=== PATIENT | male | born 1975 | race Caucasian/White ===

== ENCOUNTER → 2021-01-23 | Outpatient (CLI) | payer OTHER ==
[~2021-01-23] MED LIST: ASPIRIN325 MG PO; CLEOCIN HCL300 MG PO; COL-RITE250 MG PO; DOK250 MG PO; IBUPROFEN800 MG PO; NAPROSYN500 MG PO; NORCO 7.5-3251 EACH PO; PERCOCET 7.5-31 EACH PO; ZOFRAN4 MG PO
== END ==
LOC: RT 13:21
DX: R05 Cough (principal); R06.00 Dyspnea, unspecified; R07.9 Chest pain, unspecified; R91.8 Other nonspecific abnormal finding of lung field
CPT/HCPCS: 36415; 71046; 93005

== ENCOUNTER → 2021-10-24 | Outpatient (CLI) | payer OTHER ==
[~2021-10-24] MED LIST changes: +HYDROCHLOROTHIA25 MG PO; +METFORMIN HCL500 MG PO; +NORVASC10 MG PO
== END ==
LOC: OPSV2 09:00
DX: Z01.810 Encounter for preprocedural cardiovascular examination (principal)
CPT/HCPCS: 93005

== ENCOUNTER → 2021-11-07 | Outpatient (CLI) | payer OTHER | LOC: HEART 5 11-04 08:30 | DX: Z01.810 Encounter for preprocedural cardiovascular examination (principal); R07.9 Chest pain, unspecified; I08.1 Rheumatic disorders of both mitral and tricuspid valves | CPT/HCPCS: 93306 ==

== ENCOUNTER → 2021-11-21 | Outpatient (CLI) | payer OTHER ==
[2021-11-21 09:14] LABS: BUN/CREATININE RATIO 19 (0-10)
== END ==
LOC: OPSV2 07:33
PROVIDERS: Anesthesiology
DX: Z01.812 Encounter for preprocedural laboratory examination (principal)
CPT/HCPCS: 80048

== ENCOUNTER → 2021-11-22 | Day surgery (SDC) | payer OTHER | END | disposition home or self-care (01) | LOC: OR 05:32 → EDSTATUS 08:30 | DX: C44.41 Basal cell carcinoma of skin of scalp and neck (principal); E11.9 Type 2 diabetes mellitus without complications; I10 Essential (primary) hypertension | CPT/HCPCS: 82962; J0690; J1100; J1170; J2001; J2405; J2704; J3010; J7030; J7120 ==

== ENCOUNTER 2021-11-24 09:10 | Emergency (ER) | payer OTHER | END 2021-11-24 11:20 | disposition home or self-care (01) | LOC: ER1 09:10 | DX: T81.31XA Disruption of external operation (surgical) wound, not elsewhere classified, initial encounter (principal); E11.9 Type 2 diabetes mellitus without complications; I10 Essential (primary) hypertension; F17.210 Nicotine dependence, cigarettes, uncomplicated | CPT/HCPCS: 99283 ==

== ENCOUNTER → 2021-12-19 | Outpatient (CLI) | payer OTHER | LOC: WCC 10:43 | DX: T81.31XA Disruption of external operation (surgical) wound, not elsewhere classified, initial encounter (principal); E11.628 Type 2 diabetes mellitus with other skin complications; I10 Essential (primary) hypertension; C44.91 Basal cell carcinoma of skin, unspecified; F17.200 Nicotine dependence, unspecified, uncomplicated; Y83.8 Other surgical procedures as the cause of abnormal reaction of the patient, or of later complication, without mention of misadventure at the time of the procedure; Z91.19 Patient's noncompliance with other medical treatment and regimen ==

== ENCOUNTER → 2022-01-02 | Outpatient (CLI) | payer OTHER | LOC: WCC 07:17 | DX: T81.31XA Disruption of external operation (surgical) wound, not elsewhere classified, initial encounter (principal); E11.628 Type 2 diabetes mellitus with other skin complications; I10 Essential (primary) hypertension; C44.91 Basal cell carcinoma of skin, unspecified; S11.80XA Unspecified open wound of other specified part of neck, initial encounter; Z91.19 Patient's noncompliance with other medical treatment and regimen; Z79.84 Long term (current) use of oral hypoglycemic drugs; Z79.899 Other long term (current) drug therapy ==

== ENCOUNTER → 2022-01-16 | Outpatient (CLI) | payer OTHER | END | disposition home or self-care (01) | LOC: WCC 07:52 | DX: T81.31XA Disruption of external operation (surgical) wound, not elsewhere classified, initial encounter (principal); E11.628 Type 2 diabetes mellitus with other skin complications; I10 Essential (primary) hypertension; E11.65 Type 2 diabetes mellitus with hyperglycemia; Z91.19 Patient's noncompliance with other medical treatment and regimen; Z79.84 Long term (current) use of oral hypoglycemic drugs; Z79.899 Other long term (current) drug therapy ==

== ENCOUNTER → 2022-01-30 | Outpatient (CLI) | payer OTHER | LOC: WCC 07:33 | DX: E11.628 Type 2 diabetes mellitus with other skin complications (principal); T81.30XA Disruption of wound, unspecified, initial encounter; I10 Essential (primary) hypertension; C44.91 Basal cell carcinoma of skin, unspecified; T81.31XD Disruption of external operation (surgical) wound, not elsewhere classified, subsequent encounter; S11.80XD Unspecified open wound of other specified part of neck, subsequent encounter; Z91.19 Patient's noncompliance with other medical treatment and regimen; G47.30 Sleep apnea, unspecified | CPT/HCPCS: G0463 ==